=== PATIENT | female | born 1955 | race Caucasian/White ===

== ENCOUNTER → 2017-10-24 | Outpatient (CLI) | payer OTHER ==
--- NOTE | 2017-10-24 09:14 | US ---
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 EXAM MEASUREMENTS: RIGHT: Peak Systolic Velocity (PSV) cm/sec ----- Right CCA: 62.3 ----- Right ICA: 87.7 ----- Right ECA: 76.7 ICA/CCA ratio: 1.4 RIGHT: End Diastole cm/sec ----- Right CCA: 22.7 ----- Right ICA: 35.9 ----- Right ECA: 18.3 LEFT: Peak Systolic Velocity (PSV) cm/sec ----- Left CCA: 72.2 ----- Left ICA: 61.6 ----- Left ECA: 104.3 ICA/CCA ratio: 0.9 LEFT: End Diastole cm/sec ----- Left CCA: 28.0 ----- Left ICA: 27.6 ----- Left ECA: 26.0 VERTEBRALS (direction of flow): Right Vertebral: Antegrade Left Vertebral: Antegrade Rhythm: Normal Mild intimal wall changes noted at bilateral carotid bifurcation and PSV is wnl bilaterally. Incidental finding: bilateral thyroid nodules are seen. On the left there is a cystic appearing nodul e measuring 1.4 x 1.8 x 1.1 cm and on the right there is a hypoechoic nodule measuring 0.7 x 0.4 x 0. 6 cm. IMPRESSION: 1. Mild grayscale atheromatous plaquing without hemodynamically significant stenosis of either caroti d or serial system. 2. Incidental note of bilateral thyroid nodules. Full evaluation with thyroid ultrasound could be per formed.
--- NOTE | 2017-10-24 09:19 | US ---
EXAMINATION TYPE: US abdomen limited DATE OF EXAM: 10/24/2017 COMPARISON: NONE CLINICAL HISTORY: I25.10 atherosclerotic heart disease of [place]. EXAM MEASUREMENTS: Liver Length: 17.3 cm Gallbladder Wall: 0.2 cm CBD: 0.4 cm Right Kidney: 9.9 x 4.7 x 4.2 cm Pancreas: hyperechoic Liver: hyperechoic suggests fatty liver . This limits evaluation for underlying hepatic masses. Gallbladder: wnl Evidence for sonographic Grimes's sign: No CBD: wnl Right Kidney: No hydronephrosis or masses seen IMPRESSION: 1. Hyperechoic hepatic echotexture most commonly relating to underlying hepatic steatosis. This appea rs moderate in degree. 2. No sonographic evidence of cholelithiasis or acute cholecystitis.
== END | disposition home or self-care (01) ==
LOC: RADUSWWP 08:03
PROVIDERS: ATTEND Family Medicine
DX: K76.89 Other specified diseases of liver (principal); I65.23 Occlusion and stenosis of bilateral carotid arteries
CPT/HCPCS: 76705; 93880

== ENCOUNTER → 2017-11-03 | Outpatient (CLI) | payer OTHER ==
--- NOTE | 2017-11-03 17:47 | US ---
EXAMINATION TYPE: US thyroid st tissue head/neck DATE OF EXAM: 11/03/2017 COMPARISON: NONE CLINICAL HISTORY: E04.1 SINGLE THYROID NODULE. Nodules visualized on carotid ultrasound GLAND SIZE: Right Lobe: 4.1 x 1.0 x 1.4 cm Overall Parenchyma: homogenous Left Lobe: 4.5 x 1.1 x 1.5 cm Overall Parenchyma: homogeneous Isthmus Thickness: 0.3 cm NODULES RIGHT: # of nodules measured on right: 3 1. 0.7 X 0.4 x 0.6 cm isoechoic solid nodule at the lower pole with well-defined margins; . This n odule is wider than tall and shows intranodular vascularity. Prior size: No previous 2. 0.4 X 0.3 x 0.4 cm hypoechoic mixed cystic nodule at the mid pole with well-defined margins; . T his nodule is wider than tall and shows intranodular vascularity. Prior size: No previous 3. 0.4 X 0.2 x 0.4 cm hypoechoic solid nodule at the lower pole with well-defined margins; . This n odule is wider than tall and shows intranodular vascularity. Prior size: No previous LEFT: # of nodules measured on left: 2 1. 1.1 X 1.1 x 1.2 cm hypoechoic cystic nodule at the mid pole with well-defined margins; . This n odule is taller than wide and shows no intranodular vascularity. Prior size: No previous 2. 0.5 X 0.3 x 0.5 cm hypoechoic solid nodule at the upper pole with well-defined margins; . This n odule is wider than tall and shows no intranodular vascularity. Prior size: No previous ISTHMUS: # of nodules measured in the isthmus: 0 Bilateral thyroid nodules. Bilateral neck scanned, no evidence of lymphadenopathy. IMPRESSION: No dominant thyroid mass. Multiple bilateral nodules. Largest abnormality seen is purely cystic nodul e in the left thyroid lobe.
== END | disposition home or self-care (01) ==
LOC: RADUSWWP 16:48
PROVIDERS: ATTEND Family Medicine
DX: E04.2 Nontoxic multinodular goiter (principal)
CPT/HCPCS: 76536

== ENCOUNTER → 2018-01-22 | Outpatient (CLI) | payer OTHER ==
--- NOTE | 2018-01-22 17:08 | US ---
EXAMINATION TYPE: US thyroid st tissue head/neck DATE OF EXAM: 01/22/2018 COMPARISON: US 11/03/2017 CLINICAL HISTORY: E04.1 thyroid nodule. GLAND SIZE: Right Lobe: 3.9 x 1.2 x 1.2 cm Overall Parenchyma: homogenous Left Lobe: 4.6 x 1.4 x 1.4 cm Overall Parenchyma: homogeneous Isthmus Thickness: 0.3 cm NODULES RIGHT: # of nodules measured on right: 3 1. 0.7 X 0.4 x 0.6 cm isoechoic solid nodule at the mid pole with well-defined margins; . This no dule is wider than tall and shows intranodular vascularity. Prior size: 0.7 x 0.4 x 0.6 cm 2. 0.4 X 0.3 x 0.4 cm hypoechoic mixed nodule at the mid pole with well-defined margins; . This nod ule is wider than tall and shows no intranodular vascularity. Prior size: 0.4 x 0.3 x 0.4 cm 3. 0.4 X 0.3 x 0.4 cm hypoechoic solid nodule at the lower pole with well-defined margins; . This n odule is wider than tall and shows intranodular vascularity. Prior size: 0.4 x 0.2 x 0.4 cm LEFT: # of nodules measured on left: 2 1. 1.5 X 0.9 x 1.0 cm hypoechoic cystic nodule at the mid pole with well-defined margins; . This n odule is wider than tall and shows no intranodular vascularity. Prior size: 1.1 x 1.1 x 1.2 cm 2. 0.5 X 0.3 x 0.5 cm hypoechoic solid nodule at the upper pole with well-defined margins; . This n odule is wider than tall and shows no intranodular vascularity. Prior size: 0.5 x 0.3 x 0.5 cm ISTHMUS: # of nodules measured in the isthmus: 0 Bilateral neck scanned, no evidence of lymphadenopathy. IMPRESSION: Multiple findings as above. No dominant thyroid mass. This is consistent with benign disease. No adve rse change compared to old exam.
== END | disposition home or self-care (01) ==
LOC: RADUSWWP 16:28
PROVIDERS: ATTEND Family Medicine
DX: E04.1 Nontoxic single thyroid nodule (principal)
CPT/HCPCS: 76536

== ENCOUNTER → 2018-04-10 | Outpatient (CLI) | payer OTHER ==
--- NOTE | 2018-04-10 09:11 | CT ---
EXAMINATION TYPE: CT abdomen pelvis wo con DATE OF EXAM: 04/10/2018 COMPARISON: None HISTORY: Right hydronephrosis on US. CT DLP: 359.3 mGycm Examination of the solid and hollow viscera is limited given the lack of contrast. FINDINGS: LUNG BASES: No evidence for nodule. No evidence for infiltrate. LIVER/GB: The gallbladder is unremarkable. No space-occupying hepatic lesion. PANCREAS: No pancreatic mass identified. No inflammatory process seen. SPLEEN: No evidence for splenomegaly. No intrasplenic lesions seen. ADRENALS: No adrenal nodules identified. No evidence for thickening. KIDNEYS: Right-sided extrarenal pelvis. No evidence for renal mass. No nephrolithiasis. No hydronephr osis. BOWEL: Appendix has a normal appearance. No evidence of bowel obstruction. No inflammatory process. Lymph nodes: No evidence for adenopathy greater than 1 cm. Abdominal aorta: Atheromatous changes seen. No evidence for aneurysm. Genital organs: No significant abnormality. Other: No significant abnormality. IMPRESSION: 1. Right-sided extrarenal pelvis without evidence for hydronephrosis.
== END ==
LOC: RADCTMAIN 08:46
PROVIDERS: ATTEND Urology
DX: R93.49 Abnormal radiologic findings on diagnostic imaging of other urinary organs (principal)
CPT/HCPCS: 74176

== ENCOUNTER → 2018-05-16 | Outpatient (CLI) | payer OTHER ==
--- NOTE | 2018-05-16 10:09 | ECHOF ---
Referral Reason:R07.9 Chest pain MEASUREMENTS -------- HEIGHT: 139.7 cm WEIGHT: 29.5 kg BP: RVIDd: 2.5 cm (< 3.3) IVSd: 1.0 cm (0.6 - 1.1) LVIDd: 4.2 cm (3.9 - 5.3) LVPWd: 1.4 cm (0.6 - 1.1) IVSs: 1.5 cm LVIDs: 2.4 cm LVPWs: 1.8 cm LA Diam: 4.4 cm (2.7 - 3.8) LAESV Index (A-L): 35.67 ml/m Ao Diam: 2.8 cm (2.0 - 3.7) AV Cusp: 2.2 cm (1.5 - 2.6) MV EXCURSION: 18.221 mm (> 18.000) MV EF SLOPE: 47 mm/s (70 - 150) EPSS: 0.2 cm MV E Romeo: 0.85 m/s MV DecT: 177 ms MV A Romeo: 0.89 m/s MV E/A Ratio: 0.95 AR PHT: 468 ms RAP: 5.00 mmHg RVSP: 23.58 mmHg FINDINGS -------- Sinus rhythm. This was a technically good study. The left ventricular size is normal. Left ventricular wall thickness is normal. Overall left vent ricular systolic function is normal with, an EF between 55 - 60 %. The right ventricle is normal in size. LA is moderately dilated 34-39 ml/m2 The right atrial size is normal. There is mild aortic valve sclerosis. There is mild aortic regurgitation. The mitral valve leaflets are mildly thickened. Moderate mitral regurgitation is present. Mild tricuspid regurgitation present. There is no evidence of pulmonary hypertension. The right v entricular systolic pressure, as measured by Doppler, is 23.58mmHg. Trace/mild (physiologic) pulmonic regurgitation. The aortic root size is normal. There is no pericardial effusion. CONCLUSIONS -------- 1. Sinus rhythm. 2. This was a technically good study. 3. The left ventricular size is normal. 4. Left ventricular wall thickness is normal. 5. Overall left ventricular systolic function is normal with, an EF between 55 - 60 %. 6. LA is moderately dilated 34-39 ml/m2 7. There is mild aortic valve sclerosis. 8. There is mild aortic regurgitation. 9. The mitral valve leaflets are mildly thickened. 10. Moderate mitral regurgitation is present. 11. Mild tricuspid regurgitation present. 12. There is no evidence of pulmonary hypertension. 13. Trace/mild (physiologic) pulmonic regurgitation. 14. The aortic root size is normal. 15. There is no pericardial effusion. WEAPONS DESIGNER: Maylin Mclain RDCS
--- NOTE | 2018-05-16 15:30 | ECHOS ---
STRESS ECHOCARDIOGRAM INDICATIONS: Chest pain, palpitations. MEDICATIONS: Aspirin, Plavix, Coreg, Cozaar, hydralazine. BASELINE HEART RATE: 70 BASELINE BLOOD PRESSURE: 139/69 MAXIMUM HEART RATE: 136 MAXIMUM BLOOD PRESSURE: 198/98 85% MPHR: 135 100% MPHR: 159 METS: 10.3 MAXIMUM STAGE REACHED: 3 TOTAL EXERCISE TIME: 9:00 CLINICAL INFORMATION: Baseline rhythm sinus mechanism, rate 70, normal axis and intervals. Normal echocardiogram. Baseline blood pressure 139/69 mmHg. Patient exercised on Rylan protocol for 9 minutes reaching peak rate 136 beats per minute which is equal to 85% maximum predicted heart rate. Peak blood pressure 198/98 mmHg. Test was terminated due to fatigue. There was no chest pain. Electrocardiograph monitoring revealed no evidence of diagnostic ischemic ST deviation. FINDINGS: Baseline echocardiogram revealed normal wall motion. At peak exercise, there was normal wall motion augmentation with no hypokinesis or dyskinesis. CONCLUSION: 1. Good exercise tolerance with normal electrocardiographic response to exercise. 2. Normal stress echocardiogram with no evidence of stress induced ischemia. MMODL / IJN: [id number] /
== END | disposition home or self-care (01) ==
LOC: RADECHMAIN 08:21
PROVIDERS: ATTEND Internal Medicine Cardiovascular Disease
DX: I08.3 Combined rheumatic disorders of mitral, aortic and tricuspid valves (principal); I08.8 Other rheumatic multiple valve diseases
CPT/HCPCS: 93306; 93351

== ENCOUNTER → 2018-08-28 | Outpatient (CLI) | payer OTHER ==
--- NOTE | 2018-08-28 12:50 | US ---
EXAMINATION TYPE: US renal artery duplex complet DATE OF EXAM: 08/28/2018 COMPARISON: NONE CLINICAL HISTORY: Renal Artery Stenosis I70.1. MEASUREMENTS: RENAL SIZE: Rt Kidney: 10.1 x 4.0 x 4.5cm Lt Kidney: 8.8 x 4.7 x 4.4cm RESISTANCE INDEX Right: 0.69 Left: 0.67 RA/AO RATIO (< 3.5 ) Right: 1.5 Left: 1.6 RA VELOCITY ( < 180 cm/s) Right: 109cm/s Left: 120cm/s Probable extra renal pelvis right. Some technical difficulty due to overlying bowel gas. No evidence of renal artery stenosis. Left kidn ey measures slightly atrophic. IMPRESSION: No sonographic evidence of renal arterial stenosis.
== END | disposition home or self-care (01) ==
LOC: RADUSMAIN 08-27 08:00
PROVIDERS: ATTEND Internal Medicine Cardiovascular Disease
DX: I70.1 Atherosclerosis of renal artery (principal)
CPT/HCPCS: 93975

== ENCOUNTER → 2018-11-29 | Outpatient (CLI) | payer OTHER ==
--- NOTE | 2018-11-30 07:36 | US ---
EXAMINATION TYPE: US thyroid st tissue head/neck DATE OF EXAM: 11/29/2018 COMPARISON: 11/03/2017 CLINICAL HISTORY: E04.2 goiter. Multinodular goiter. GLAND SIZE: Right Lobe: 4.2 x 1.7 x 1.5 cm Overall Parenchyma: homogenous Left Lobe: 4.4 x 1.5 x 1.5 cm Overall Parenchyma: homogeneous Isthmus Thickness: 0.3 cm NODULES RIGHT: # of nodules measured on right: 3 1. .9 X .5 x .8 cm isoechoic solid nodule at the mid pole with well-defined margins. This nodule i s wider than tall and shows intranodular vascularity. Prior size: .7 x .4 x .6 cm 2. .4 X .3 x .3 cm hypoechoic mixed nodule at the mid pole with well-defined margins. This nodule i s wider than tall and shows intranodular vascularity. Prior size: .4 x .3 x .4 cm 3. .7 X .5 x .6 cm hypoechoic mixed nodule at the lower pole with well-defined margins. This nodule is wider than tall and shows intranodular vascularity. Prior size: .4 x .3 x .4 cm LEFT: # of nodules measured on left: 3 1. .7 X .7 x .6 cm hypoechoic mixed nodule at the mid pole with well-defined margins. This nodule is wider than tall and shows no intranodular vascularity. Prior size: 1.5 x .9 x 1.0 cm 2. .7 X .7 x .6 cm hypoechoic solid nodule at the lower pole with well-defined margins. This nodule is wider than tall and shows no intranodular vascularity. Prior size: .5 x .3 x .5 cm 3. .5 X .3 x .5 cm hypoechoic cystic nodule at the upper pole with well-defined margins. This nodul e is wider than tall and shows no intranodular vascularity. ISTHMUS: # of nodules measured in the isthmus: 0 Bilateral neck scanned. Hypoechoic area with the appearance of a lymph node right neck measuring 1.3 x 0.4 x 0.8, nonenlarged . IMPRESSION: Overall similar size of the multiple bilateral subcentimeter thyroid nodules, few of which demonstrat ing only minimal growth in comparison to the exam of 11/03/2017.
== END | disposition home or self-care (01) ==
LOC: RADUSWWP 16:55
PROVIDERS: ATTEND Family Medicine
DX: E04.2 Nontoxic multinodular goiter (principal)
CPT/HCPCS: 76536

== ENCOUNTER → 2019-06-18 | Outpatient (CLI) | payer OTHER ==
--- NOTE | 2019-06-18 12:48 | ECHOF ---
Referral Reason:I34.2 Nonrheumatic mitral (valve) stenosis MEASUREMENTS -------- HEIGHT: 165.1 cm WEIGHT: 72.6 kg BP: RVIDd: 3.1 cm (< 3.3) IVSd: 1.3 cm (0.6 - 1.1) LVIDd: 3.7 cm (3.9 - 5.3) LVPWd: 1.6 cm (0.6 - 1.1) IVSs: 1.7 cm LVIDs: 2.5 cm LVPWs: 1.8 cm LA Diam: 4.1 cm (2.7 - 3.8) LAESV Index (A-L): 28.24 ml/m Ao Diam: 2.9 cm (2.0 - 3.7) AV Cusp: 2.0 cm (1.5 - 2.6) LA Diam: 3.9 cm (2.7 - 3.8) MV EXCURSION: 16.659 mm (> 18.000) MV EF SLOPE: 64 mm/s (70 - 150) EPSS: 0.2 cm MV E Romeo: 0.69 m/s MV DecT: 225 ms MV A Romeo: 0.77 m/s MV E/A Ratio: 0.90 AR PHT: 498 ms RAP: 5.00 mmHg RVSP: 11.51 mmHg TAPSE: 21.52 mm FINDINGS -------- Sinus rhythm. This was a technically good study. The left ventricular size is normal. There is mild concentric left ventricular hypertrophy. Overa ll left ventricular systolic function is normal with, an EF between 55 - 60 %. The diastolic fillin g pattern is normal for the age of the patient 11.99. The right ventricle is normal in size. The left atrium is mildly dilated. LA is midly dilated 29-33ml/m2. There is mild to moderate aortic valve sclerosis. There is mild aortic regurgitation. The mitral valve leaflets are mild to moderately thickened. Mild mitral annular calcification pres ent. [id number] mitral regurgitation is present. Mild prolapse of the posterior mitral valv e leaflet. Mild tricuspid regurgitation present. Right ventricular systolic pressure is normal at < 35 mmHg. There is no evidence of pulmonary hypertension. There is a trivial pericardial effusion present. CONCLUSIONS -------- 1. Sinus rhythm. 2. This was a technically good study. 3. The left ventricular size is normal. 4. There is mild concentric left ventricular hypertrophy. 5. Overall left ventricular systolic function is normal with, an EF between 55 - 60 %. 6. The diastolic filling pattern is normal for the age of the patient 11.99 7. The right ventricle is normal in size. 8. The left atrium is mildly dilated. 9. LA is midly dilated 29-33ml/m2. 10. There is mild to moderate aortic valve sclerosis. 11. There is mild aortic regurgitation. 12. The mitral valve leaflets are mild to moderately thickened. 13. Mild mitral annular calcification present. 14. [id number] mitral regurgitation is present. 15. Mild prolapse of the posterior mitral valve leaflet. 16. Mild tricuspid regurgitation present. 17. Right ventricular systolic pressure is normal at < 35 mmHg. 18. There is no evidence of pulmonary hypertension. 19. There is a trivial pericardial effusion present. ENVIRONMENTAL PROGRAMS MANAGER: Maylin Mclain RDCS
== END | disposition home or self-care (01) ==
LOC: RADECHMAIN 08:36
PROVIDERS: ATTEND Internal Medicine Cardiovascular Disease
DX: I08.3 Combined rheumatic disorders of mitral, aortic and tricuspid valves (principal); I31.3 Pericardial effusion (noninflammatory)
CPT/HCPCS: 93306

== ENCOUNTER → 2019-06-18 | Outpatient (CLI) | payer OTHER ==
--- NOTE | 2019-06-18 08:51 | US ---
EXAMINATION TYPE: US thyroid st tissue head/neck DATE OF EXAM: 06/18/2019 COMPARISON: US 11/29/2018, US 01/22/2018 CLINICAL HISTORY: E04.1 nontoxic single thyroid nodule. GLAND SIZE: Right Lobe: 4.0 x 1.2 x 1.4 cm Overall Parenchyma: homogenous Left Lobe: 4.9 x 1.4 x 1.2 cm Overall Parenchyma: homogeneous Isthmus Thickness: 0.3 cm NODULES- Multiple subcentimeter nodules visualized on the right, largest 3: RIGHT: # of nodules measured on right: 3 1. 0.9 X 0.5 x 0.7 cm hypoechoic mixed nodule at the mid pole with well-defined margins; . This no dule is wider than tall and shows intranodular vascularity. Prior size: 0.9 X 0.5 x 0.8 cm 2. 0.5 X 0.4 x 0.6 cm hypoechoic mixed nodule at the mid pole with well-defined margins; . This nod ule is wider than tall and shows no intranodular vascularity. Prior size: 0.6 x 0.3 x 0.5 cm 3. 0.5 X 0.3 x 0.6 cm hypoechoic solid nodule at the lower pole with well-defined margins; . This n odule is wider than tall and shows intranodular vascularity. Prior size: 0.4 x 0.3 x 0.4 cm LEFT: # of nodules measured on left: 2 1. 0.6 X 0.4 x 0.6 cm hypoechoic cystic nodule at the upper pole with well-defined margins; . This nodule is wider than tall and shows no intranodular vascularity. Prior size: 0.5 x 0.3 x 0.5 cm 2. 0.5 X 0.6 x 0.4 cm echogenic solid nodule at the lower pole with well-defined margins; . This no dule is wider than tall and shows no intranodular vascularity. Prior size: Not previously visualized ISTHMUS: # of nodules measured in the isthmus: 0 Bilateral neck scanned, no evidence of lymphadenopathy. IMPRESSION: Similar size of the multiple bilateral subcentimeter thyroid nodules in a multinodular goiter. No gre ater than 1 cm nodule.
== END | disposition home or self-care (01) ==
LOC: RADUSWWP 08:06
PROVIDERS: ATTEND Family Medicine
DX: E04.2 Nontoxic multinodular goiter (principal)
CPT/HCPCS: 76536

== ENCOUNTER 2020-07-04 11:45 | Emergency (ER) | payer OTHER ==
[2020-07-04 11:54] VITALS: BP 133/72; PULSE 57; RESP 19; TEMP 98.2
--- NOTE | 2020-07-04 12:29 | ED ---
Fall HPI - General Chief Complaint: Fall Stated Complaint: fall/arm injury/head injury Time Seen by Provider: 07/04/20 12:03 Source: patient Mode of arrival: ambulatory - History of Present Illness Initial Comments: Patient is a 65-year-old female presenting to the emergency department after she fell at home today. Patient states she was trying to carry two [place] samples and slipped and fell onto her right side. Patient has a deformity of her right wrist and she is also complaining that something hit the right side of her head. She does have a small bump there. She denies any loss of consciousness. She denies having a headache, no dizziness or blurry vision. She is on Plavix with history of stroke. She denies any other injuries from this fall. She is no further complaints. - Related Data Allergies Allergy/AdvReac Type Severity Reaction Status Date / Time Iodinated Contrast Media Allergy Anaphylaxis Verified 07/04/20 11:55 iodine Allergy Anaphylaxis Verified 07/04/20 11:55 Review of Systems ROS Statement: Those systems with pertinent positive or pertinent negative responses have been documented in the HPI. ROS Other: All systems not noted in ROS Statement are negative. Past Medical History Past Medical History: CVA/TIA, Hyperlipidemia, Hypertension History of Any Multi-Drug Resistant Organisms: None Reported Past Surgical History: Tubal Ligation Past Psychological History: Anxiety Smoking Status: Never smoker Past Alcohol Use History: Daily Past Drug Use History: None Reported General Exam - General Exam Comments Initial Comments: GENERAL: Patient is well-developed and well-nourished. Patient is nontoxic and in no acute distress. HEAD: Atraumatic, normocephalic. Patient has a very small hematoma to the right temporal area, no signs of basal skull fracture. EYES: Pupils equal round and reactive to light, extraocular movements intact, sclera anicteric, conjunctiva are normal. Eyelids were unremarkable. ENT: TMs normal, nares patent, oropharynx clear without exudates. Moist mucous membranes. NECK: Normal range of motion, supple without lymphadenopathy or JVD. No midline tenderness. LUNGS: Unlabored respirations. Breath sounds clear to auscultation bilaterally and equal. No wheezes rales or rhonchi. HEART: Regular rate and rhythm without murmurs, rubs or gallops. ABDOMEN: Soft, nontender, normoactive bowel sounds. No guarding, no rebound. No masses appreciated. : Deferred MUSCULOSKELETAL: Patient has a deformity of the right wrist, radial pulses intact and normal. She is able to wiggle all of her fingers, sensation is intact. Rest of extremities with adequate strength and normal range of motion, no pitting or edema. No clubbing or cyanosis. NEUROLOGICAL: Patient is alert and oriented x 3. Motor and sensory are also intact. Cranial nerves II through XII grossly intact. Symmetrical smile. Normal speech, normal gait. PSYCH: Normal mood, normal affect. SKIN: Warm, Dry, normal turgor, no rashes. Patient has a small abrasion over the right forearm, no active bleeding at this time. Limitations: no limitations Course Vital Signs 07/04/20 11:49 Temperature 98.2 F Pulse Rate 57 L Respiratory 19 Rate Blood Pressure 133/72 O2 Sat by Pulse 99 Oximetry Medical Decision Making - Medical Decision Making Patient is a 65-year-old female here after she fell, she has no deformity of her right wrist, pulses are equal and intact, she is able to wiggle her fingers. CT of brain and C-spine revealed no acute injuries. X-rays of the right forearm and wrist revealed no acute fracture or dislocations. Patient has a large hematoma on her right forearm with a small abrasion. We did cut off 2 rings of her right hand. Her pulses remained equal. Abrasion was cleaned, bandage applied and Bam wrap was complied over the hematoma the right forearm. Patient is stable for discharge. I recommended continuing with the compression, ice to the area and Tylenol Motrin for any discomfort. She can follow-up with her regular doctor. She is in agreement with this plan of care. Return parameters were discussed with the patient and she verbalized understanding. Case discussed with Dr. Arrington. Disposition Clinical Impression: Fall, Traumatic hematoma of right forearm, Scalp hematoma Disposition: HOME SELF-CARE Condition: Stable Instructions (If sedation given, give patient instructions): Hematoma (ED) Additional Instructions: Please return to the Emergency Department if symptoms worsen or any other concerns. Please keep compression on the hematoma. May use ice to the area. May take ibuprofen or Tylenol for any discomfort. Please follow-up with your regular doctor. Is patient prescribed a controlled substance at d/c from ED?: No Referrals: Emilie Martin MD [Primary Care Provider] - 1-2 days
--- NOTE | 2020-07-04 13:09 | CT ---
EXAMINATION TYPE: CT brain david roland con DATE OF EXAM: 07/04/2020 COMPARISON: 11/09/2009 HISTORY: Fall and on PLAVIX CT DLP: 1267 mGycm, Automated exposure control for dose reduction was used. CONTRAST: Patient injected with 0 mL of Isovue 300. CT of the brain is performed utilizing 3 mm thick sections through the posterior fossa and 3 mm thick sections through the remaining calvarium. Study is performed within 24 hours of arrival to the hospital. No abnormal hyperdensity is present to suggest an acute intracranial hemorrhage. No mass lesion is evident. No acute infarcts are evident. Ventricles and sulci are appropriate for the patient age. Paranasal sinuses and mastoid air cells within the [id number] are clear. IMPRESSIONS: 1. Normal CT brain. No acute intracranial process radiographically evident. CT cervical spine. COMPARISON: None CT of the cervical spine is performed in the axial plane at 2 mm thick sections. Reconstructed image s in the coronal, and sagittal plane are reviewed on the computer. No acute fractures are evident. Vertebral body alignment is normal. Generative disc changes are present C6-7. Posterior endplate spurring is present at this level. Findi ngs are new interval development from 2009 Vertebral body heights are preserved. There is right foraminal narrowing due to uncovertebral joint hypertrophy at C4-5. Uncovertebral join t hypertrophy has moderate bilateral foraminal stenosis at C6-7. No neural foraminal stenosis is evident. IMPRESSIONS: 1. Degenerative disc changes C6-7 with endplate spurring. 2. Uncovertebral joint hypertrophy moderately bilaterally at C6-7. Some right foraminal stenosis also noted C4-5
--- NOTE | 2020-07-04 13:11 | XR ---
EXAMINATION TYPE: XR forearm RT DATE OF EXAM: 07/04/2020 COMPARISON: None HISTORY: Fall, deformity TECHNIQUE: 2 view right forearm FINDINGS: No acute fracture or dislocation is evident. Very prominent soft tissue swelling is over th e distal forearm dorsally. IMPRESSION: 1. Prominent soft tissue swelling distal half dorsal forearm. 2. Underlying osseous structures appear intact. Follow-up exams can be performed 7-10 days from acute trauma for continued pain.
--- NOTE | 2020-07-04 13:12 | XR ---
EXAMINATION TYPE: XR wrist complete RT DATE OF EXAM: 07/04/2020 COMPARISON: None HISTORY: Fall, deformity TECHNIQUE: 4 view right wrist FINDINGS: No acute osseous abnormality is evident. If there is pain at the anatomic snuff box, nuclea r medicine bone scan could be performed for additional evaluation. Follow-up exams can be performed 7 -10 days from acute trauma for continued pain. There is very prominent soft tissue swelling over the dorsum of the distal forearm. IMPRESSION: 1. Prominent soft tissue swelling distal dorsal forearm. 2. No acute osseous abnormality.
== END 2020-07-04 13:58 | disposition home or self-care (01) ==
LOC: EC 11:45
DX: S00.03XA Contusion of scalp, initial encounter (principal); S50.11XA Contusion of right forearm, initial encounter; Z91.041 Radiographic dye allergy status; Z79.02 Long term (current) use of antithrombotics/antiplatelets; Z98.51 Tubal ligation status; Z86.73 Personal history of transient ischemic attack (TIA), and cerebral infarction without residual deficits; W01.10XA Fall on same level from slipping, tripping and stumbling with subsequent striking against unspecified object, initial encounter; Y93.89 Activity, other specified
CPT/HCPCS: 70450; 72125; 99284

== ENCOUNTER 2023-01-17 15:12 | Emergency (ER) | payer MEDICARE, OTHER ==
[2023-01-17 17:08] LABS: Basophils % (A) 0 %; Eosinophils # (A) 0.3 k/uL (0-0.7); Eosinophils % (A) 3 %; HCT 40.5 % (34.0-46.0); Lymphocytes # (A) 2.4 k/uL (1.0-4.8); Lymphocytes % (A) 30 %; MCH 32.1 pg (25.0-35.0); MCHC 34.5 g/dL (31.0-37.0); Mean Platelet Volume 7.2; Monocytes # (A) 0.4 k/uL (0-1.0); Monocytes % (A) 5 %; Neutrophils # (A) 4.9 k/uL (1.3-7.7); Neutrophils % (A) 61 %; Platelet Count 172 k/uL (150-450); RBC 4.35 m/uL (3.80-5.40)
[2023-01-17 17:23] LABS: ALT 25 U/L (4-34); AST 27 U/L (14-36); African American GFR (CKD) 69 (>60 ml/min/1.73 sqM); Albumin 4.4 g/dL (3.5-5.0); Alkaline Phosphatase 81 U/L (38-126); Anion Gap 10 mmol/L; Blood Urea Nitrogen 16 mg/dL (7-17); Calcium 9.5 mg/dL (8.4-10.2); Carbon Dioxide 24 mmol/L (22-30); Chloride 106 mmol/L (98-107); Glucose 93 mg/dL (74-99); Lipase 77 U/L (23-300); Magnesium 1.9 mg/dL (1.6-2.3); Non-African American GFR(CKD) 60 (>60 ml/min/1.73 sqM); Sodium 140 mmol/L (137-145); Total Bilirubin 0.7 mg/dL (0.2-1.3); Total Protein 7.1 g/dL (6.3-8.2)
--- NOTE | 2023-01-17 18:01 | XR ---
EXAMINATION TYPE: XR KUB DATE OF EXAM: 01/17/2023 5:27 PM INDICATION: Patient age:Female; 67 years old; Reason for study: Constipation; COMPARISON: 04/10/2018 CT TECHNIQUE: One radiographic view of the abdomen was obtained. FINDINGS: The bowel gas pattern is nonspecific without dilated loops of small or large bowel. There i s no evidence for organomegaly or pneumoperitoneum. The osseous structures are intact. No abnormal calcifications are present. Fecal material and gas are demonstrated throughout the colon and rectum. IMPRESSION: Nonspecific bowel gas pattern without radiographic evidence for acute process.
--- NOTE | 2023-01-17 18:10 | ED ---
General Adult HPI - General Chief complaint: Abdominal Pain Stated complaint: Blockage Inst, Sent by PCP Time Seen by Provider: 01/17/23 16:01 Source: patient Mode of arrival: ambulatory Limitations: no limitations - History of Present Illness Initial comments: This is a 67-year-old female with a past medical history including hypertension presented to the emergency department for possible constipation and an episode of nausea and vomiting. The patient stated that she is on Rybelsus and stated that she had an increase in her dose on Monday to 7 mg and noted that on Monday she had an episode of nausea and vomiting. The patient stated that after the episode of nausea and vomiting she had resolution of her symptoms without any acute abdominal pain or distress noted. The patient then contact her primary care physician today and did state that she needed to come to the emergency department "get a CAT scan." The patient was resting in bed comfortably without any acute pain, distress or symptoms. The patient was resting in bed comfortab ly. - Related Data Home Medications Medication Instructions Recorded Confirmed Aspirin EC [Ecotrin] 325 mg PO DAILY 01/17/23 01/17/23 Atorvastatin [Lipitor] 40 mg PO HS 01/17/23 01/17/23 Clopidogrel [Plavix] 75 mg PO DAILY 01/17/23 01/17/23 Klonopin (Unverified) 1 mg PO DIRECTED 01/17/23 01/17/23 Losartan Potassium [Cozaar] 100 mg PO DAILY 01/17/23 01/17/23 Semaglutide [Rybelsus] 7 mg PO DIRECTED 01/17/23 01/17/23 carvediloL [Coreg] 25 mg PO TID 01/17/23 01/17/23 hydrALAZINE HCL [Apresoline] 25 mg PO TID 01/17/23 01/17/23 Allergies Allergy/AdvReac Type Severity Reaction Status Date / Time Iodinated Contrast Media Allergy Anaphylaxis Verified 01/17/23 17:13 iodine Allergy Anaphylaxis Verified 01/17/23 17:13 Review of Systems ROS Statement: Those systems with pertinent positive or pertinent negative responses have been documented in the HPI. ROS Other: All systems not noted in ROS Statement are negative. Past Medical History Past Medical History: CVA/TIA, Hyperlipidemia, Hypertension History of Any Multi-Drug Resistant Organisms: None Reported Past Surgical History: Tubal Ligation Past Psychological History: Anxiety Smoking Status: Never smoker Past Alcohol Use History: Daily Past Drug Use History: None Reported General Exam Limitations: no limitations General appearance: alert, in no apparent distress Head exam: Present: atraumatic, normocephalic, normal inspection Eye exam: Present: normal appearance, PERRL Pupils: Present: normal accommodation ENT exam: Present: normal exam, normal oropharynx, mucous membranes moist Neck exam: Present: normal inspection, full ROM Respiratory exam: Present: normal lung sounds bilaterally Cardiovascular Exam: Present: regular rate, normal rhythm, normal heart sounds GI/Abdominal exam: Present: soft, normal bowel sounds. Absent: distended, tenderness Extremities exam: Present: normal inspection, full ROM Back exam: Present: normal inspection, full ROM Neurological exam: Present: alert, oriented X3, CN II-XII intact Psychiatric exam: Present: normal affect, normal mood Skin exam: Present: warm, dry Course Vital Signs 01/17/23 01/17/23 15:28 18:19 Temperature 97.4 F L 97.7 F Pulse Rate 75 63 Respiratory 18 17 Rate Blood Pressure 97/66 113/73 O2 Sat by Pulse 95 98 Oximetry Medical Decision Making - Medical Decision Making Was pt. sent in by a medical professional or institution (, PA, NURSE SCHOOL, urgent care, hospital, or custodial...) When possible be specific @ -Yes, patient sent in by her primary care physician for a "CAT scan" Did you speak to anyone other than the patient for history (EMS, parent, family, police, friend...)? What history was obtained from this source @ -No Did you review nursing and triage notes (agree or disagree)? Why? @ -I reviewed and agree with nursing and triage notes Were old charts reviewed (outside hosp., previous admission, EMS record, old EKG, old radiological studies, urgent care reports/EKG's, custodial records)? Report findings @ -No old charts were reviewed Differential Diagnosis (chest pain, altered mental status, abdominal pain women, abdominal pain men, vaginal bleeding, weakness, fever, dyspnea, syncope, headache, dizziness, GI bleed, back pain, seizure, CVA, palpatations, mental health)? @ -Constipation, small bowel obstruction, gastroenteritis EKG interpreted by me (3pts min.). @ -None X-rays interpreted by me (1pt min.). @ -KUB x-ray was obtained and was interpreted by myself showing no acute process. CT interpreted by me (1pt min.). @ -None done U/S interpreted by me (1pt. min.). @ -None done What testing was considered but not performed or refused? (CT, X-rays, U/S, labs)? Why? @ -Computed tomography scan was momentarily considered however the patient had no symptoms and had a soft abdomen without any acute tenderness noted therefore a computed tomography scan was not needed at this time. What meds were considered but not given or refused? Why? @ -None Did you discuss the management of the patient with other professionals (professionals i.e. Dr., PA, NURSE SCHOOL, lab, RT, psych nurse, director social service, swimming professor, teacher, radiation officer, director of casework)? Give summary @ -No Was smoking cessation discussed for >3mins.? @ -No Was critical care preformed (if so, how long)? @ -No Were there social determinants of health that impacted care today? How? (Homelessness, low income, unemployed, alcoholism, drug addiction, transportation, low edu. Level, literacy, decrease access to med. care, [facility], rehab)? @ -No Was there de-escalation of care discussed even if they declined (Discuss DNR or withdrawal of care, Hospice)? DNR status @ -No What co-morbidities impacted this encounter? (DM, HTN, Smoking, COPD, CAD, Cancer, CVA, ARF, Chemo, Hep., AIDS, mental health diagnosis, sleep apnea, morbid obesity)? @ -Hypertension Was patient admitted / discharged? Hospital course, mention meds given and route, prescriptions, significant lab abnormalities, going to OR and other pertinent info. @ -The patient was seen and evaluated in emergency department. Physical exam, the patient was resting in bed without any acute distress. Vital signs admission were stable. All laboratory workup and imaging was negative and the patient likely had side effects secondary to the increased dosage of her weight loss medication. The patient was advised to follow-up with her primary care physician for further recommendations for dosing. The patient was also advised report back to the emergency department if her pain or symptoms became acutely worse. The patient was agreeable to this and all her questions were answered ap propriately. The patient was discharged home in stable condition. Undiagnosed new problem with uncertain prognosis? @ -No Drug Therapy requiring intensive monitoring for toxicity (Heparin, Nitro, Insulin, Cardizem)? @ -No Were any procedures done? @ -No Diagnosis/symptom? @ -Episode of nausea, vomiting, resolved Acute, or Chronic, or Acute on Chronic? @ -Acute Uncomplicated (without systemic symptoms) or Complicated (systemic symptoms)? @ -Uncomplicated Side effects of treatment? @ -No Exacerbation, Progression, or Severe Exacerbation? @ -No Poses a threat to life or bodily function? How? (Chest pain, [place], [place], pneumonia, PE, COPD, DKA, ARF, appy, cholecystitis, CVA, Diverticulitis, Homicidal, Suicidal, threat to staff... and all critical care pts) @ -No - Lab Data Result diagrams: 01/17/23 16:46 01/17/23 16:46 Lab Results 01/17/23 01/17/23 Range/Units 16:46 16:46 WBC 8.0 (3.8-10.6) k/uL RBC 4.35 (3.80-5.40) m/uL Hgb 14.0 (11.4-16.0) gm/dL Hct 40.5 (34.0-46.0) % MCV 93.0 (80.0-100.0) fL MCH 32.1 (25.0-35.0) pg MCHC 34.5 (31.0-37.0) g/dL RDW 13.0 (11.5-15.5) % Plt Count 172 (150-450) k/uL MPV 7.2 Neutrophils % 61 % Lymphocytes % 30 % Monocytes % 5 % Eosinophils % 3 % Basophils % 0 % Neutrophils # 4.9 (1.3-7.7) k/uL Lymphocytes # 2.4 (1.0-4.8) k/uL Monocytes # 0.4 (0-1.0) k/uL Eosinophils # 0.3 (0-0.7) k/uL Basophils # 0.0 (0-0.2) k/uL Sodium 140 (137-145) mmol/L Potassium 4.0 (3.5-5.1) mmol/L Chloride 106 (98-107) mmol/L Carbon Dioxide 24 (22-30) mmol/L Anion Gap 10 mmol/L BUN 16 (7-17) mg/dL Creatinine 0.99 (0.52-1.04) mg/dL Est GFR (CKD-EPI)AfAm 69 (>60 ml/min/1.73 sqM) Est GFR (CKD-EPI)NonAf 60 (>60 ml/min/1.73 sqM) Glucose 93 (74-99) mg/dL Calcium 9.5 (8.4-10.2) mg/dL Magnesium 1.9 (1.6-2.3) mg/dL Total Bilirubin 0.7 (0.2-1.3) mg/dL AST 27 (14-36) U/L ALT 25 (4-34) U/L Alkaline Phosphatase 81 (38-126) U/L Total Protein 7.1 (6.3-8.2) g/dL Albumin 4.4 (3.5-5.0) g/dL Lipase 77 (23-300) U/L Disposition Clinical Impression: Abdominal pain Disposition: HOME SELF-CARE Condition: Stable Instructions (If sedation given, give patient instructions): Abdominal Pain (ED) Is patient prescribed a controlled substance at d/c from ED?: No Referrals: Andre Ravi MD [Primary Care Provider] - 1-2 days Time of Disposition: 17:00
[2023-01-17 18:20] VITALS: BP 113/73; PULSE 63; RESP 17; TEMP 97.7
== END 2023-01-17 18:22 | disposition home or self-care (01) ==
LOC: EC 15:12
DX: K59.00 Constipation, unspecified (principal); I10 Essential (primary) hypertension; E78.5 Hyperlipidemia, unspecified; F41.9 Anxiety disorder, unspecified; Z79.02 Long term (current) use of antithrombotics/antiplatelets; Z79.82 Long term (current) use of aspirin; Z79.899 Other long term (current) drug therapy; Z88.5 Allergy status to narcotic agent; Z88.8 Allergy status to other drugs, medicaments and biological substances
CPT/HCPCS: 36415; 74018; 80053; 83690; 83735; 85025; 99284

== ENCOUNTER 2024-11-25 17:39 | Observation (INO) | payer MEDICARE, OTHER ==
[2024-11-25 17:53] VITALS: TEMP 97.9
--- NOTE | 2024-11-25 18:09 | ED ---
General Adult HPI - General Chief complaint: Syncope Stated complaint: syncope Time Seen by Provider: 11/25/24 17:43 Source: patient, RN notes reviewed Mode of arrival: EMS Limitations: no limitations - History of Present Illness Initial comments: Patient is a 69-year-old female present to the emergency department with syncopal episode. Episode occurred at dinner just prior to arrival. Patient felt a little bit tired otherwise had no complaints. Patient was reportedly unresponsive for around 6 minutes. Patient states that this time she feels near normal, possibly a little bit tired still. No chest pain or dyspnea. No abdominal or back pain. No confusion or weakness. No history of similar symptoms previously - Related Data Home Medications Medication Instructions Recorded Confirmed Aspirin EC [Ecotrin] 325 mg PO DAILY 01/17/23 01/17/23 Atorvastatin [Lipitor] 40 mg PO HS 01/17/23 01/17/23 Clopidogrel [Plavix] 75 mg PO DAILY 01/17/23 01/17/23 Klonopin (Unverified) 1 mg PO DIRECTED 01/17/23 01/17/23 Losartan Potassium [Cozaar] 100 mg PO DAILY 01/17/23 01/17/23 Semaglutide [Rybelsus] 7 mg PO DIRECTED 01/17/23 01/17/23 carvediloL [Coreg] 25 mg PO TID 01/17/23 01/17/23 hydrALAZINE HCL [Apresoline] 25 mg PO TID 01/17/23 01/17/23 Allergies Allergy/AdvReac Type Severity Reaction Status Date / Time Iodinated Contrast Media Allergy Anaphylaxis Verified 01/17/23 17:13 iodine Allergy Anaphylaxis Verified 01/17/23 17:13 Review of Systems ROS Statement: Those systems with pertinent positive or pertinent negative responses have been documented in the HPI. ROS Other: All systems not noted in ROS Statement are negative. Constitutional: Denies: fever Eyes: Denies: eye pain ENT: Denies: ear pain Respiratory: Denies: cough, dyspnea Cardiovascular: Denies: chest pain Endocrine: Denies: fatigue Gastrointestinal: Denies: abdominal pain Musculoskeletal: Denies: back pain Neurological: Denies: headache, weakness, confusion Past Medical History Past Medical History: CVA/TIA, Hyperlipidemia, Hypertension Additional Past Medical History / Comment(s): mitral valve prolaspe History of Any Multi-Drug Resistant Organisms: None Reported Past Surgical History: Adenoidectomy, Tonsillectomy, Tubal Ligation Past Psychological History: Anxiety Smoking Status: Never smoker Past Alcohol Use History: Daily Past Drug Use History: None Reported General Exam Limitations: no limitations General appearance: alert, in no apparent distress Head exam: Present: normocephalic Eye exam: Present: normal appearance Neck exam: Present: normal inspection Respiratory exam: Present: normal lung sounds bilaterally Cardiovascular Exam: Present: regular rate, normal rhythm, normal heart sounds Expanded Peripheral pulses: 2+: Radial (R), Radial (L), Posterior Tibialis (R), Posterior Tibialis (L) GI/Abdominal exam: Present: soft. Absent: tenderness, pulsatile mass Neurological exam: Present: alert, oriented X3, CN II-XII intact. Absent: motor sensory deficit Expanded Neurological exam: Present: protecting the airway Patient oriented to: Present: person, place, time Speech: Present: fluid speech Cranial nerves: EOM's Intact: Normal, Facial Sensation: Normal Motor strength exam: RUE: 5, LUE: 5, RLE: 5, LLE: 5 Eye Response: (4) open spontaneously Motor Response: (6) obeys commands Verbal Response: (5) oriented Psychiatric exam: Present: normal affect, normal mood Skin exam: Present: normal color Course Vital Signs 11/25/24 11/25/24 11/25/24 17:49 17:53 18:53 Temperature 97.9 F Pulse Rate 60 68 59 L Respiratory 16 16 16 Rate Blood Pressure 124/67 130/68 121/74 O2 Sat by Pulse 97 98 98 Oximetry EKG Findings - EKG Results: EKG: interpreted by ERMD (First-degree AV block with VA of 263.), sinus rhythm, normal axis, normal QRS, normal ST/T Medical Decision Making - Medical Decision Making Was pt. sent in by a medical professional or institution (, PA, MEDICAL REVIEW SPECIALIST, urgent care, hospital, or intermediate...) When possible be specific @ -No Did you speak to anyone other than the patient for history (EMS, parent, family, police, friend...)? What history was obtained from this source @ -Family is present helps provide details including duration of syncopal event Did you review nursing and triage notes (agree or disagree)? Why? @ -I reviewed and agree with nursing and triage notes Were old charts reviewed (outside hosp., previous admission, EMS record, old EKG, old radiological studies, urgent care reports/EKG's, intermediate records)? Report findings @ -No old charts were reviewed Differential Diagnosis (chest pain, altered mental status, abdominal pain women, abdominal pain men, vaginal bleeding, weakness, fever, dyspnea, syncope, headache, dizziness, GI bleed, back pain, seizure, CVA, palpatations, mental hea lth, musculoskeletal)? @ -Differential Syncope: Valvular disease, hypertrophic cardiomyopathy, pulmonary embolism, tamponade, tachycardia, bradycardia, [place], hypovolemia, hemorrhage, dissection, anemia, intracranial hemorrhage, seizure, hypoglycemia, carbon monoxide poisoning, this is not meant to be an all-inclusive list. EKG interpreted by me (3pts min.). @ -As above X-rays interpreted by me (1pt min.). @ CT interpreted by me (1pt min.). @ -CT scan of the brain without acute abnormality U/S interpreted by me (1pt. min.). @ -None done What testing was considered but not performed or refused? (CT, X-rays, U/S, labs)? Why? @ -CT scan of the chest ordered and pending What meds were considered but not given or refused? Why? @ -None Did you discuss the management of the patient with other professionals (professionals i.e. , PA, MEDICAL REVIEW SPECIALIST, lab, RT, psych nurse, manager social services, hydroelectric plant maintainer, teacher, business services officer, ed case manager)? Give summary @ -Case was discussed with Dr. Ravi who will admit his patient Was smoking cessation discussed for >3mins.? @ -No Was critical care preformed (if so, how long)? @ -No Were there social determinants of health that impacted care today? How? (Homele ssness, low income, unemployed, alcoholism, drug addiction, transportation, low edu. Level, literacy, decrease access to med. care, [facility], rehab)? @ -No Was there de-escalation of care discussed even if they declined (Discuss DNR or withdrawal of care, Hospice)? DNR status @ -No What co-morbidities impacted this encounter? (DM, HTN, Smoking, COPD, CAD, Cancer, CVA, ARF, Chemo, Hep., AIDS, mental health diagnosis, sleep apnea, morbid obesity)? @ -None Was patient admitted / discharged? Hospital course, mention meds given and route, prescriptions, significant lab abnormalities, going to OR and other pertinent info. @ -Patient presents with syncopal event lasting around 6 minutes. Patient near symptom-free on arrival. Initial evaluation unremarkable. Patient will be admitted. Admission orders written. Patient updated Undiagnosed new problem with uncertain prognosis? @ -No Drug Therapy requiring intensive monitoring for toxicity (Heparin, Nitro, Insulin, Cardizem)? @ -No Were any procedures done? @ -No Diagnosis/symptom? @ -Syncope Acute, or Chronic, or Acute on Chronic? @ -Acute Uncomplicated (without systemic symptoms) or Complicated (systemic symptoms)? @ -Default Side effects of treatment? @ -No Exacerbation, Progression, or Severe Exacerbation? @ -No Poses a threat to life or bodily function? How? (Chest pain, [place], [place], pneumonia, PE, COPD, DKA, ARF, appy, cholecystitis, CVA, Diverticulitis, Homicidal, Suicidal, threat to staff... and all critical care pts) @ -No - Lab Data Result diagrams: 11/25/24 18:06 11/25/24 18:06 Lab Results 11/25/24 11/25/24 11/25/24 Range/Units 18:06 18:06 18:06 WBC 7.82 (4.50-10.00) 10*3/uL RBC 4.02 L (4.10-5.20) 10*6/uL Hgb 12.8 (12.0-15.0) g/dL Hct 36.7 L (37.2-46.3) % MCV 91.3 (80.0-97.0) fL MCH 31.8 (27.0-32.0) pg MCHC 34.9 (32.0-37.0) g/dL Plt Count 199 (140-440) 10*3/uL MPV 8.8 L (9.5-12.2) fL Immature Gran % (Auto) 0.3 % Neutrophils % 62.6 % Lymphocytes % 28.3 % Monocytes % 6.4 % Eosinophils % 2.0 % Basophils % 0.4 % Immature Gran # 0.02 (0.00-0.04) 10*3/uL Neutrophils # 4.90 (1.80-7.70) 10*3/uL Lymphocytes # 2.21 (0.90-5.00) 10*3/uL Monocytes # 0.50 (0.20-1.00) 10*3/uL Eosinophils # 0.16 (0.04-0.35) 10*3/uL Basophils # 0.03 (0.00-0.10) 10*3/uL PT 11.6 (10.0-12.5) sec INR 1.1 (<1.2) APTT 23.7 (22.0-30.0) sec D-Dimer 0.87 H (<0.60) mg/L FEU Sodium 141 (137-145) mmol/L Potassium 3.4 L (3.5-5.1) mmol/L Chloride 105 (98-107) mmol/L Carbon Dioxide 22 (22-30) mmol/L Anion Gap 14 mmol/L BUN 18 H (7-17) mg/dL Creatinine 0.99 (0.52-1.04) mg/dL Est GFR (CKD-EPI)AfAm 68 (>60 ml/min/1.73 sqM) Est GFR (CKD-EPI)NonAf 59 (>60 ml/min/1.73 sqM) Glucose 90 (74-99) mg/dL Calcium 9.6 (8.4-10.2) mg/dL Magnesium 1.8 (1.6-2.3) mg/dL Total Bilirubin 0.7 (0.2-1.3) mg/dL AST 23 (14-36) U/L ALT 21 (4-34) U/L Alkaline Phosphatase 76 (38-126) U/L Troponin I (0.000-0.034) ng/mL Total Protein 6.5 (6.3-8.2) g/dL Albumin 4.1 (3.5-5.0) g/dL / Range/Units 18:06 WBC (4.50-10.00) 10*3/uL RBC (4.10-5.20) 10*6/uL Hgb (12.0-15.0) g/dL Hct (37.2-46.3) % MCV (80.0-97.0) fL MCH (27.0-32.0) pg MCHC (32.0-37.0) g/dL Plt Count (140-440) 10*3/uL MPV (9.5-12.2) fL Immature Gran % (Auto) % Neutrophils % % Lymphocytes % % Monocytes % % Eosinophils % % Basophils % % Immature Gran # (0.00-0.04) 10*3/uL Neutrophils # (1.80-7.70) 10*3/uL Lymphocytes # (0.90-5.00) 10*3/uL Monocytes # (0.20-1.00) 10*3/uL Eosinophils # (0.04-0.35) 10*3/uL Basophils # (0.00-0.10) 10*3/uL PT (10.0-12.5) sec INR (<1.2) APTT (22.0-30.0) sec D-Dimer (<0.60) mg/L FEU Sodium (137-145) mmol/L Potassium (3.5-5.1) mmol/L Chloride (98-107) mmol/L Carbon Dioxide (22-30) mmol/L Anion Gap mmol/L BUN (7-17) mg/dL Creatinine (0.52-1.04) mg/dL Est GFR (CKD-EPI)AfAm (>60 ml/min/1.73 sqM) Est GFR (CKD-EPI)NonAf (>60 ml/min/1.73 sqM) Glucose (74-99) mg/dL Calcium (8.4-10.2) mg/dL Magnesium (1.6-2.3) mg/dL Total Bilirubin (0.2-1.3) mg/dL AST (14-36) U/L ALT (4-34) U/L Alkaline Phosphatase (38-126) U/L Troponin I <0.012 (0.000-0.034) ng/mL Total Protein (6.3-8.2) g/dL Albumin (3.5-5.0) g/dL Disposition Clinical Impression: Syncope Disposition: ADMITTED IP TO THIS [facility] Is patient prescribed a controlled substance at d/c from ED?: No Referrals: Andre Raiv MD [Primary Care Provider] - 1-2 days Time of Disposition: 20:45
[2024-11-25 18:17] LABS: Basophils # (A) 0.03 10*3/uL (0.00-0.10); Basophils % (A) 0.4 %; Eosinophils # (A) 0.16 10*3/uL (0.04-0.35); HCT 36.7 % (37.2-46.3); HGB 12.8 g/dL (12.0-15.0); Lymphocytes # (A) 2.21 10*3/uL (0.90-5.00); Lymphocytes % (A) 28.3 %; MCH 31.8 pg (27.0-32.0); MCHC 34.9 g/dL (32.0-37.0); MCV 91.3 fL (80.0-97.0); Mean Platelet Volume 8.8 fL (9.5-12.2); Monocytes % (A) 6.4 %; Neutrophils % (A) 62.6 %; Platelet Count 199 10*3/uL (140-440); RBC 4.02 10*6/uL (4.10-5.20); RDW 12.9 % (11.5-14.5); WBC 7.82 10*3/uL (4.50-10.00)
[2024-11-25 18:32] LABS: INR 1.1 (<1.2); Partial Thromboplastin Time 23.7 sec (22.0-30.0); Prothrombin Time 11.6 sec (10.0-12.5)
[2024-11-25 18:37] LABS: ALT 21 U/L (4-34); AST 23 U/L (14-36); African American GFR (CKD) 68 (>60 ml/min/1.73 sqM); Albumin 4.1 g/dL (3.5-5.0); Alkaline Phosphatase 76 U/L (38-126); Anion Gap 14 mmol/L; Blood Urea Nitrogen 18 mg/dL (7-17); Calcium 9.6 mg/dL (8.4-10.2); Carbon Dioxide 22 mmol/L (22-30); Chloride 105 mmol/L (98-107); Glucose 90 mg/dL (74-99); Magnesium 1.8 mg/dL (1.6-2.3); Non-African American GFR(CKD) 59 (>60 ml/min/1.73 sqM); Potassium 3.4 mmol/L (3.5-5.1); Sodium 141 mmol/L (137-145); Total Bilirubin 0.7 mg/dL (0.2-1.3); Total Protein 6.5 g/dL (6.3-8.2)
[2024-11-25] MEDS: SODIUM CHLORIDE 0.9% 1,000 ML IV STA (18:55)
--- NOTE | 2024-11-25 19:02 | CT ---
EXAMINATION TYPE: CT brain wo con DATE OF EXAM: 11/25/2024 6:52 PM COMPARISON: Previous CT study 07/04/2020. CLINICAL INDICATION: Female, 69 years old with history of syncope, syncope episode at restaurant. epi sode of hypotension per ems, pt states hx of CVA she she was 31 TECHNIQUE: Brain: Axial CT images of the brain were obtained with coronal and sagittal reformats created and rev iewed. Contrast used: None. Oral contrast used: None. CT DLP: 1127.6 mGycm, Automated exposure control for dose reduction was used. FINDINGS: Brain: Extra-axial spaces: No abnormal extra-axial fluid collections. Ventricular system: Within normal limits Cerebral parenchyma: No acute intraparenchymal hemorrhage or mass effect. The zelaya-white junction is well differentiated. Scattered hypoattenuating areas are seen within the white matter. Cerebellum: Unremarkable. Mass effect: No evidence of midline shift. Intracranial vasculature: unremarkable Soft tissues: Normal. Calvarium/osseous structures: No depressed skull fracture. Paranasal sinuses and mastoid air cells: Mild scattered paranasal sinus disease. Visualized orbits: Orbital contents are intact. IMPRESSION: No acute intracranial process. [facility], , 11/25/2024 6:59 PM
[2024-11-25] MEDS: FAMOTIDINE 20 MG/2 ML VIAL IV STA (19:52)
[2024-11-25] MEDS: methylPREDNISolone SOD SUCCI 125 MG/2 ML VIAL IV STA (19:52)
[2024-11-25] MEDS: diphenhydrAMINE 50 MG/ML 1 ML VIAL IVP STA (19:52)
--- NOTE | 2024-11-25 21:32 | CT ---
EXAMINATION TYPE: CT angio chest DATE OF EXAM: 11/25/2024 8:59 PM COMPARISON: Chest radiograph from same day. Multiple CTs of the chest with most recent on . CLINICAL INDICATION: Female, 69 years old with history of syncope; sycncope episode at restaurant. ep isode of hypotension per ems. no chest pain no sob. c/o tired. TECHNIQUE/CONTRAST: CTA scan of the thorax is performed with IV Contrast, patient injected with 80 ML mL of Isovue 370, M IP images are created and reviewed these are created on a separate workstation.. CT DLP: 318.4 mGycm, Automated exposure control for dose reduction was used. FINDINGS: Pulmonary Artery: There is no evidence for a filling defect within the pulmonary vasculature to sugge st acute pulmonary embolism. The pulmonary artery is of normal size. Lungs/Pleura: No evidence of focal consolidation, pleural effusion or pneumothorax. Airway: Large airways are patent. Heart: Heart is within normal limits for size. Coronary artery calcifications. Vasculature: No evidence of aortic aneurysm. Mediastinum: No gross evidence of adenopathy. Musculoskeletal: No acute osseous abnormalities Soft Tissues/lymph nodes: Unremarkable. Lower neck: No significant findings. Upper Abdomen: No significant findings. IMPRESSION: No evidence of acute pulmonary pathology or acute pulmonary pathology. [facility], , 11/25/2024 9:29 PM
[2024-11-25] MEDS ORDERED: NITROGLYCERIN SL TABS 0.4 MG TAB SUBLINGUAL PRN (22:52)
[2024-11-25] MEDS: NON FORMULARY DRUG (Semaglutide [Rybelsus] 7 MG Tablet) PO SCH (23:44)
[2024-11-26 05:53] VITALS: BP 97/66; PULSE 75; RESP 16
[2024-11-26] MEDS: carvediloL 12.5 MG TAB PO SCH (07:46)
[2024-11-26] MEDS: hydrALAZINE HCL 25 MG TAB PO SCH (07:46)
[2024-11-26] MEDS ORDERED: LOSARTAN 50 MG TAB PO SCH ×2 (08:00→09:00)
[2024-11-26 08:16] LABS: Chol/HDL Ratio 5.16 Ratio; LDL Cholesterol,Calculated 98.8 mg/dL (0.0-131.0)
--- NOTE | 2024-11-26 08:45 | P.HPIM ---
History of Present Illness H&P Date: 11/26/24 This is a 69-year-old female who presented to the emergency department with a complaint of a syncopal episode. Patient reports she had been out to dinner and had eaten half of her eggplant Parmesan along with drinking a sangria and had a syncopal episode. Patient was reportedly unresponsive for around 6 minutes. Patient reports that was the first time she had eaten yesterday and had also only drank 20 ounces of water prior to dinner yesterday. Patient reports she has not had much of an appetite recently, she lost her at the end of last year. Patient seen this morning sitting up in bed resting comfortably. She states she is feeling much better. She follows with cardiology out of town, Dr. Marino. Patient reports she has an echo scheduled in December that Dr. Marino has ordered. Patient is asking to go home this morning. She does not want to have an echo here. Further medical history as noted below. Review of Systems Constitutional: Denies chills, Denies fever Cardiovascular: Denies chest pain, Denies dyspnea on exertion Respiratory: Denies cough, Denies dyspnea Gastrointestinal: Denies abdominal pain, Denies nausea, Denies vomiting Musculoskeletal: Denies arm numbness/tingling, Denies leg numbness/tingling Neurological: Denies headaches, Denies weakness Past Medical History Past Medical History: CVA/TIA, Hyperlipidemia, Hypertension Additional Past Medical History / Comment(s): mitral valve prolaspe History of Any Multi-Drug Resistant Organisms: None Reported Past Surgical History: Adenoidectomy, Tonsillectomy, Tubal Ligation Past Psychological History: Anxiety Smoking Status: Never smoker Past Alcohol Use History: Daily Past Drug Use History: None Reported Medications and Allergies Home Medications Medication Instructions Recorded Confirmed Type Aspirin EC [Ecotrin] 325 mg PO DAILY 01/17/23 11/26/24 History Atorvastatin [Lipitor] 40 mg PO HS 01/17/23 11/26/24 History Clopidogrel [Plavix] 75 mg PO DAILY 01/17/23 11/26/24 History Losartan Potassium [Cozaar] 100 mg PO BID 01/17/23 11/26/24 History carvediloL [Coreg] 25 mg PO TID 01/17/23 11/26/24 History hydrALAZINE HCL [Apresoline] 25 mg PO TID 01/17/23 11/26/24 History Allergies Allergy/AdvReac Type Severity Reaction Status Date / Time Iodinated Contrast Media Allergy Anaphylaxis Verified 11/26/24 07:08 iodine Allergy Anaphylaxis Verified 11/26/24 07:08 Physical Exam Vitals: Vital Signs Temp Pulse Resp BP Pulse Ox 11/26/24 05:53 75 16 97/66 96 11/26/24 02:08 76 17 104/67 98 11/25/24 18:53 59 L 16 121/74 98 11/25/24 17:53 68 16 130/68 98 11/25/24 17:49 97.9 F 60 16 124/67 97 Intake and Output 11/25/24 11/26/24 11/26/24 22:59 06:59 14:59 Other: Weight 66.224 kg - Constitutional General appearance: cooperative, no acute distress - EENT Eyes: PERRLA - Neck Neck: no lymphadenopathy, normal ROM, no rigidity - Respiratory Respiratory: bilateral: CTA - Cardiovascular Rhythm: regular Heart sounds: normal: S1, S2 - Gastrointestinal General gastrointestinal: soft, no tenderness - Integumentary Integumentary: normal, normal turgor - Psychiatric Psychiatric: A&O x's 3, appropriate affect, intact judgment & insight Results CBC & Chem 7: 11/25/24 18:06 11/25/24 18:06 Labs: Abnormal Lab Results - Last 24 Hours (Table) 11/25/24 11/25/24 11/25/24 Range/Units 18:06 18:06 18:06 RBC 4.02 L (4.10-5.20) 10*6/uL Hct 36.7 L (37.2-46.3) % MPV 8.8 L (9.5-12.2) fL D-Dimer 0.87 H (<0.60) mg/L FEU Potassium 3.4 L (3.5-5.1) mmol/L BUN 18 H (7-17) mg/dL Triglycerides (0.00-149.00) mg/dL HDL Cholesterol (40.00-60.00) mg/dL 11/26/24 Range/Units 02:11 RBC (4.10-5.20) 10*6/uL Hct (37.2-46.3) % MPV (9.5-12.2) fL D-Dimer (<0.60) mg/L FEU Potassium (3.5-5.1) mmol/L BUN (7-17) mg/dL Triglycerides 167.00 H (0.00-149.00) mg/dL HDL Cholesterol 31.80 L (40.00-60.00) mg/dL Assessment and Plan (1) Syncope Current Visit: Yes Status: Acute Code(s): R55 - SYNCOPE AND COLLAPSE SNOMED Code(s): 666367123 (2) Hypertension Current Visit: Yes Status: Acute Code(s): I10 - ESSENTIAL (PRIMARY) HYPERTENSION SNOMED Code(s): 17785794 (3) Hyperlipidemia Current Visit: Yes Status: Acute Code(s): E78.5 - HYPERLIPIDEMIA, U NSPECIFIED SNOMED Code(s): 82213023 (4) History of CVA (cerebrovascular accident) Current Visit: Yes Status: Acute Code(s): Z86.73 - PRSNL HX OF TIA (TIA), AND CEREB INFRC W/O RESID DEFICITS SNOMED Code(s): 485052362 Plan: Continue home medications. Appreciate cardiology input. Patient seen and evaluated by nurse practitioner, physician in agreement with plan.
--- NOTE | 2024-11-26 08:46 | P.DS ---
Providers Date of admission: 11/25/24 22:54 Attending physician: Andre Ravi Consults: 11/25/24 22:52 Consult Physician Routine Consulting Provider: Juanito Barlow Consult Reason/Comments: syncope Do you want consulting provider notified?: Yes Primary care physician: Andre Ravi - Discharge Diagnosis(es) (1) Syncope Current Visit: Yes Status: Acute (2) Hypertension Current Visit: Yes Status: Acute (3) Hyperlipidemia Current Visit: Yes Status: Acute (4) History of CVA (cerebrovascular accident) Current Visit: Yes Status: Acute Hospital Course: This is a 69-year-old female who presented to the emergency department with a complaint of a syncopal episode. Patient reports she had been out to dinner and had eaten half of her eggplant Parmesan along with drinking a sangria and had a syncopal episode. Patient was reportedly unresponsive for around 6 minutes. Patient reports that was the first time she had eaten yesterday and had also only drank 20 ounces of water prior to dinner yesterday. Patient reports she has not had much of an appetite recently, she lost her at the end of last year. Patient seen this morning sitting up in bed resting comfortably. She states she is feeling much better. She follows with cardiology out of town, Dr. Marino. Patient reports she has an echo scheduled in December that Dr. Marino has ordered. Patient is asking to go home this morning. She does not want to have an echo here. Will have cardiology see patient and if they are okay with discharge, patient may be discharged today. Patient seen and evaluated by nurse practitioner, physician in agreement with plan. Plan - Discharge Summary New Discharge Prescriptions: Continue Aspirin EC [Ecotrin] 325 mg PO DAILY carvediloL [Coreg] 25 mg PO TID Atorvastatin [Lipitor] 40 mg PO HS hydrALAZINE HCL [Apresoline] 25 mg PO TID Losartan Potassium [Cozaar] 100 mg PO BID Clopidogrel [Plavix] 75 mg PO DAILY Discharge Medication List Aspirin EC [Ecotrin] 325 mg PO DAILY 01/17/23 [History] Atorvastatin [Lipitor] 40 mg PO HS 01/17/23 [History] Clopidogrel [Plavix] 75 mg PO DAILY 01/17/23 [History] Losartan Potassium [Cozaar] 100 mg PO BID 01/17/23 [History] carvediloL [Coreg] 25 mg PO TID 01/17/23 [History] hydrALAZINE HCL [Apresoline] 25 mg PO TID 01/17/23 [History] Follow up Appointment(s)/Referral(s): Andre Ravi MD [Primary Care Provider] - 1 Week Discharge Disposition: HOME SELF-CARE
[2024-11-26] MEDS ORDERED: ASPIRIN 325 MG TAB PO SCH (09:00)
[2024-11-26] MEDS ORDERED: NON FORMULARY DRUG (Aspirin Ec 325 MG Tab) PO SCH (09:00)
[2024-11-26] MEDS: LOSARTAN 50 MG TAB PO SCH (09:13)
[2024-11-26] MEDS: CLOPIDOGREL 75 MG TAB PO SCH (09:13)
[2024-11-26] MEDS: ASPIRIN 81 MG PO SCH (09:13)
--- NOTE | 2024-11-26 12:53 | P.CRDCN ---
History of Present Illness History of present illness: HISTORY OF PRESENT ILLNESS: This is a 69-year-old female with a past medical history significant for daily alcohol use, hypertension, hyperlipidemia, and anxiety. Patient follows with Dr. Marino. We have been asked to see the patient in consultation for syncope. Patient examined at the bedside. Patient states she was eating dinner with her family. Patient states she was smelling marijuana from another table at dinner. Afterwards she felt a little dizzy and hot. She felt like she was felt "goofy". About minutes later, family states she slumped over in her chair, was drooling, and was responsive. She states that she had an episode similar to this about 10 years ago due to "heat stroke". DIAGNOSTICS: - EKG reveals sinus mechanism with no signs of acute ischemia. - CT of the brain: Negative for acute process -Chest CT: Negative for acute pulmonary pathology - Laboratory data: WBC 7.82. Hemoglobin 12.8. Platelet count 199. D-dimer 0.87. Sodium 141. Potassium 3.4. BUN 18. Creatinine 0.99. Troponin negative x 3 - Current home cardiac medications include aspirin 325 mg daily, Lipitor 40 mg daily, Plavix 75 mg daily, losartan 100 mg twice a day, carvedilol 25 mg 3 times daily, hydralazine 25 mg 3 times daily. - Most recent echocardiogram obtained in June 2019 revealing ejection fraction 55 to 60%, mild aortic regurgitation, mild to moderate aortic valve scl erosis, mild to moderate mitral regurgitation, mild tricuspid regurgitation - Patient underwent stress echocardiogram in May 2018 which was negative for ischemia REVIEW OF SYSTEMS: At the time of my exam: CONSTITUTIONAL: Denies fever or chills. HEENT: Denies blurred vision, vision changes, or eye pain. Denies hemoptysis CARDIOVASCULAR: Denies chest pain. Denies orthopnea. Denies PND. Denies palpitations RESPIRATORY: Denies shortness of breath. GASTROINTESTINAL: Denies abdominal pain. Denies nausea or vomiting. HEMATOLOGIC: Denies bleeding disorders. GENITOURINARY: Denies any blood in urine. SKIN: Denies pruitis. Denies rash. PHYSICAL EXAM: VITAL SIGNS: Reviewed. GENERAL: Well-developed in no acute distress. HEENT: Head is normocephalic. Pupils are equal, round. Sclerae anicteric. Mucous membranes of the mouth are moist. Neck supple. No JVD or thyromegaly LUNGS: Respirations even and unlabored. Lungs essentially clear to auscultation bilaterally. HEART: Regular rate and rhythm. S1 and S2 heard. ABDOMEN: Soft. Nondistended. Nontender. EXTREMITIES: Normal range of motion. No clubbing or cyanosis. Peripheral pulses intact. No lower extremity edema NEUROLOGIC: Awake and alert. Oriented x 3. ASSESSMENT: Syncope, likely vasovagal Hypertension Hyperlipidemia History of anxiety Daily alcohol use History of CVA PLAN: No need to obtain echocardiogram Resume home cardiac medications Decrease aspirin to 81 mg daily Decrease losartan to 100 mg once a day instead of twice a day Patient states she has contacted her primary herbarium worker and he has ordered an event monitor for her Patient will be discharged home today and follow-up with her primary herbarium worker Dr. Marino Nurse practitioner note has been reviewed by physician. Signing provider agrees with the documented findings, assessment, and plan of care documented by [employer] as a scribe. Past Medical History Past Medical History: CVA/TIA, Hyperlipidemia, Hypertension Additional Past Medical History / Comment(s): mitral valve prolaspe History of Any Multi-Drug Resistant Organisms: None Reported Past Surgical History: Adenoidectomy, Tonsillectomy, Tubal Ligation Past Psychological History: Anxiety Smoking Status: Never smoker Past Alcohol Use History: Daily Past Drug Use History: None Reported Medications and Allergies Home Medications Medication Instructions Recorded Confirmed Type Aspirin EC [Ecotrin] 325 mg PO DAILY 01/17/23 11/26/24 History Atorvastatin [Lipitor] 40 mg PO HS 01/17/23 11/26/24 History Clopidogrel [Plavix] 75 mg PO DAILY 01/17/23 11/26/24 History carvediloL [Coreg] 25 mg PO TID 01/17/23 11/26/24 History hydrALAZINE HCL [Apresoline] 25 mg PO TID 01/17/23 11/26/24 History Losartan [Cozaar] 100 mg PO DAILY tab 11/26/24 Rx Allergies Allergy/AdvReac Type Severity Reaction Status Date / Time Iodinated Contrast Media Allergy Anaphylaxis Verified 11/26/24 07:08 iodine Allergy Anaphylaxis Verified 11/26/24 07:08 Physical Exam Vitals: Vital Signs Temp Pulse Resp BP Pulse Ox 11/26/24 05:53 75 16 97/66 96 11/26/24 02:08 76 17 104/67 98 11/25/24 18:53 59 L 16 121/74 98 11/25/24 17:53 68 16 130/68 98 11/25/24 17:49 97.9 F 60 16 124/67 97 Intake and Output 11/25/24 11/26/24 11/26/24 22:59 06:59 14:59 Other: Weight 66.224 kg Results 11/25/24 18:06 11/25/24 18:06 Cardiac Enzymes 11/25/24 11/25/24 11/25/24 Range/Units 18:06 18:06 23:14 AST 23 (14-36) U/L Troponin I <0.012 <0.012 (0.000-0.034) ng/mL 11/26/24 Range/Units 02:11 AST (14-36) U/L Troponin I <0.012 (0.000-0.034) ng/mL Coagulation 11/25/24 Range/Units 18:06 PT 11.6 (10.0-12.5) sec APTT 23.7 (22.0-30.0) sec CBC 11/25/24 Range/Units 18:06 WBC 7.82 (4.50-10.00) 10*3/uL RBC 4.02 L (4.10-5.20) 10*6/uL Hgb 12.8 (12.0-15.0) g/dL Hct 36.7 L (37.2-46.3) % Plt Count 199 (140-440) 10*3/uL Comprehensive Metabolic Panel 11/25/24 Range/Units 18:06 Sodium 141 (137-145) mmol/L Potassium 3.4 L (3.5-5.1) mmol/L Chloride 105 (98-107) mmol/L Carbon Dioxide 22 (22-30) mmol/L BUN 18 H (7-17) mg/dL Creatinine 0.99 (0.52-1.04) mg/dL Glucose 90 (74-99) mg/dL Calcium 9.6 (8.4-10.2) mg/dL AST 23 (14-36) U/L ALT 21 (4-34) U/L Alkaline Phosphatase 76 (38-126) U/L Total Protein 6.5 (6.3-8.2) g/dL Albumin 4.1 (3.5-5.0) g/dL Current Medications Generic Name Dose Route Start Last Admin Trade Name Freq PRN Reason Stop Dose Admin Aspirin 325 mg 11/26/24 09:00 Aspirin 325 Mg Tab PO DAILY [facility] Atorvastatin Calcium 40 mg 11/26/24 21:00 Atorvastatin 40 Mg Tab PO HS [facility] Carvedilol 25 mg 11/26/24 09:00 11/26/24 07:46 Carvedilol 12.5 Mg Tab PO Not Given TID [facility] Clopidogrel Bisulfate 75 mg 11/26/24 09:00 Clopidogrel 75 Mg Tab PO DAILY [facility] Hydralazine HCl 25 mg 11/26/24 09:00 11/26/24 07:46 Hydralazine Hcl 25 Mg Tab PO Not Given TID [facility] Losartan Potassium 100 mg 11/26/24 08:00 Losartan 50 Mg Tab PO Q12HR [facility] Nitroglycerin 0.4 mg 11/25/24 22:52 Nitroglycerin Sl Tabs 0.4 Mg Tab SUBLINGUAL Q5M PRN Chest Pain Sodium Chloride 10 ml 11/26/24 09:00 Sodium Chloride 0.9% Flush 10 Ml Syringe IV BID [facility] Intake and Output 11/25/24 11/26/24 11/26/24 22:59 06:59 14:59 Other: Weight 66.224 kg 11/25/24 18:06 11/25/24 18:06
[2024-11-26] MEDS ORDERED: carvediloL 12.5 MG TAB PO SCH (17:30)
[2024-11-26] MEDS ORDERED: ATORVASTATIN 40 MG TAB PO SCH (21:00)
== END 2024-11-26 13:00 | disposition home or self-care (01) ==
LOC: EC 17:39 → 6NMEDSUR 22:54 → 1SOBS 11-26 05:32
PROVIDERS: ADMIT Family Medicine; ATTEND Family Medicine
DX: R55 Syncope and collapse (principal); I10 Essential (primary) hypertension; E78.5 Hyperlipidemia, unspecified; I08.3 Combined rheumatic disorders of mitral, aortic and tricuspid valves; I44.0 Atrioventricular block, first degree; F10.90 Alcohol use, unspecified, uncomplicated; F41.9 Anxiety disorder, unspecified; Z79.82 Long term (current) use of aspirin; Z79.02 Long term (current) use of antithrombotics/antiplatelets; Z79.899 Other long term (current) drug therapy; Z91.041 Radiographic dye allergy status; Z91.048 Other nonmedicinal substance allergy status; Z86.73 Personal history of transient ischemic attack (TIA), and cerebral infarction without residual deficits
CPT/HCPCS: 96361 ×2; 96374; 96375; 99285; 36415; 93005 ×2; 85379; 80061; 80053; 83735; 84484 ×2; 85025; 85610; 85730; 70450; 71275; G0378 ×2; J1200; Q9967; J2919; J1308